=== PATIENT | female | born 2000 | race African-American/Black ===

== ENCOUNTER 2022-01-01 16:30 | Emergency (ER) | payer OTHER ==
[~2022-01-01] VITALS: Ht 160 cm; Wt 49.0 kg
[2022-01-01 16:52] VITALS: BP 116/66
== END 2022-01-02 03:42 | disposition left against medical advice (07) ==
LOC: ER 16:30
DX: N89.8 Other specified noninflammatory disorders of vagina (principal); Z98.890 Other specified postprocedural states
CPT/HCPCS: 81025; 99282; Z7610